=== PATIENT | female | born 1990 | race Caucasian/White ===

== ENCOUNTER 2018-02-10 07:11 | Outpatient (CLI) | payer MEDICAID | END 2018-02-10 11:00 | disposition home or self-care (01) | LOC: OBT 07:11 → L-D 07:11 → OBT 11:00 | DX: O62.9 Abnormality of forces of labor, unspecified (principal); Z3A.40 40 weeks gestation of pregnancy | CPT/HCPCS: 76818 ==

== ENCOUNTER 2018-02-13 02:45 | Inpatient (IN) | payer MEDICAID ==
[2018-02-13] MEDS ORDERED: OXYTOCIN 30 UNITS/LR 500 ML IV ×2 (04:00)
[2018-02-13] MEDS ORDERED: METHYLERGONOVINE 0.2 MG INJ IM (04:00)
[2018-02-13] MEDS ORDERED: LIDOCAINE 1% (MPF) 30 ML INJ INJ (04:00)
[2018-02-13] MEDS ORDERED: MISOPROSTOL 200 MCG TAB PR (04:00)
[2018-02-13] MEDS ORDERED: CARBOPROST 250 MCG INJ IM (04:00)
[2018-02-13] MEDS: LACTATED RINGER'S 1,000 ML IV ×6 (04:50→21:42)
[2018-02-13] MEDS: AMPICILLIN 2 GM/NS (PMX) 100 ML IV (05:38)
[2018-02-13 06:14] LABS: ADD MAN DIFF? NO
[2018-02-13 06:22] LABS: INR 0.99; PARTIAL THROMBOPLASTIN TIME 26.3 Sec (25.0-35.0); PROTIME 13.2 Sec (11.9-14.9)
[2018-02-13 06:25] LABS: HEMATOCRIT 29.3 % (37.0-47.0); HEMOGLOBIN 9.5 g/dl (12.0-16.0); RED BLOOD COUNT 3.32 10^6/ul (4.20-5.40)
[2018-02-13 06:25] LABS: WHITE BLOOD COUNT 7.7 10^3/ul (4.8-10.8)
[2018-02-13 06:26] LABS: BASOPHILS % 0.5 % (0.0-2.0); EOSINOPHILS # 0.2 10^3/ul (0.0-0.5); EOSINOPHILS % 3.1 % (0.0-7.0); LYMPHOCYTES # 2.1 10^3/ul (0.8-2.9); LYMPHOCYTES % 27.5 % (15.0-51.0); MEAN CORPUSCULAR HEMOGLOBIN 28.6 pg (29.0-33.0); MEAN CORPUSCULAR HGB CONC 32.4 g/dl (32.0-37.0); MEAN CORPUSCULAR VOLUME 88.3 fl (82.0-101.0); MEAN PLATELET VOLUME 11.5 fl (7.4-10.4); MONOCYTE # 0.7 10^3/ul (0.3-0.9); NEUTROPHIL # 4.5 10^3/ul (1.6-7.5); PLATELET COUNT 210 10^3/UL (140-415); RED CELL DISTRIBUTION WIDTH 13.6 % (11.5-14.5)
[2018-02-13] MEDS: MISOPROSTOL 25 MCG CAPSULE PO (06:41)
[2018-02-13] MEDS: BUTORPHANOL 2 MG INJ IV (07:35)
[2018-02-13] MEDS: AMPICILLIN 1 GM/NS (PMX) 50 ML IV ×4 (08:43→19:47)
[2018-02-13] MEDS ORDERED: FENTAnyl 2MCG/ML-ROPIV 0.2% 100 ML (10:41)
[2018-02-13] MEDS ORDERED: NALOXONE (0.4 MG/ML) INJ IV (11:30)
[2018-02-13] MEDS: OXYTOCIN 30 UNITS/LR 500 ML IV ×2 (11:31→23:54)
[2018-02-13 14:54] LABS: RAPID PLASMA REAGIN NONREACTIVE (NR)
[2018-02-13] MEDS: ACETAMINOPHEN 325 MG TAB PO (19:25)
[2018-02-13] MEDS: FENTAnyl 2MCG/ML-ROPIV 0.2% 100 ML BAG EPI (19:58)
[2018-02-14] MEDS: IBUPROFEN 600 MG TAB PO ×5 (00:30→23:45)
[2018-02-14] MEDS ORDERED: LACTATED RINGER'S 500 ML IV (01:15)
[2018-02-14] MEDS ORDERED: MISOPROSTOL 200 MCG TAB PR (01:30)
[2018-02-14] MEDS ORDERED: DIBUCAINE 1% 30 GM OINT PR (01:30)
[2018-02-14] MEDS ORDERED: DIPHENHYDRAMINE 50 MG INJ IV (01:30)
[2018-02-14] MEDS ORDERED: ONDANSETRON 4 MG INJ IV (01:30)
[2018-02-14] MEDS ORDERED: ZOLPIDEM 5 MG TAB PO (01:30)
[2018-02-14] MEDS ORDERED: CARBOPROST 250 MCG INJ IM (01:30)
[2018-02-14] MEDS ORDERED: OXYTOCIN 30 UNITS/LR 500 ML IV (01:30)
[2018-02-14] MEDS ORDERED: ACETAMINOPHEN 325 MG TAB PO (01:30)
[2018-02-14] MEDS ORDERED: OXYCODONE/ASPIRIN (4.88/325) TAB PO (01:30)
[2018-02-14] MEDS ORDERED: METHYLERGONOVINE 0.2 MG INJ IM (01:30)
[2018-02-14] MEDS: BENZOCAINE 20% 56 ML SPRAY TOP (06:19)
[2018-02-14] MEDS: WITCH HAZEL/GLYCERIN PAD PR (06:19)
[2018-02-14] MEDS: LANOLIN 7 GM TUBE TOP (06:19)
[2018-02-15] MEDS: IBUPROFEN 600 MG TAB PO ×3 (06:00→17:53)
[2018-02-15 07:11] LABS: ADD MAN DIFF? NO
[2018-02-15 07:19] LABS: WHITE BLOOD COUNT 14.9 10^3/ul (4.8-10.8)
[2018-02-15 07:19] LABS: BASOPHIL # 0.1 10^3/ul (0.0-0.1); BASOPHILS % 0.5 % (0.0-2.0); EOSINOPHILS # 0.4 10^3/ul (0.0-0.5); HEMATOCRIT 25.8 % (37.0-47.0); HEMOGLOBIN 8.5 g/dl (12.0-16.0); LYMPHOCYTES # 3.5 10^3/ul (0.8-2.9); LYMPHOCYTES % 23.4 % (15.0-51.0); MEAN CORPUSCULAR HEMOGLOBIN 29.2 pg (29.0-33.0); MEAN CORPUSCULAR HGB CONC 32.9 g/dl (32.0-37.0); MEAN CORPUSCULAR VOLUME 88.7 fl (82.0-101.0); MEAN PLATELET VOLUME 11.3 fl (7.4-10.4); MONOCYTES % 6.6 % (0.0-11.0); NEUTROPHIL # 9.8 10^3/ul (1.6-7.5); NEUTROPHILS % 65.7 % (39.0-77.0); PLATELET COUNT 179 10^3/UL (140-415); RED BLOOD COUNT 2.91 10^6/ul (4.20-5.40); RED CELL DISTRIBUTION WIDTH 14.2 % (11.5-14.5)
[2018-02-16] MEDS: IBUPROFEN 600 MG TAB PO ×2 (00:41→06:21)
[2018-02-16] MEDS: MEASLES,MUMPS,RUBELLA VACCINE INJ SC* (07:40)
[2018-02-16] MEDS: SENNA/DOCUSATE NA (8.6MG/50MG) TAB PO (10:33)
[2018-02-16] MEDS: DIPHTH/TET/ACEL PERTUSS (ADULT) 0.5 ML VIAL IM* (10:34)
== END 2018-02-16 12:30 | disposition home or self-care (01) | DRG 775 ==
LOC: OBT 02:45 → PP1 02-14 01:18 → L-D 02:46 → OBT 06:07 → L-D 03:39
PROVIDERS: Obstetrics & Gynecology
PROC: 10E0XZZ Delivery of Products of Conception, External Approach (ICD-10-PCS; principal; 2018-02-13)
PROC: 4A1HXCZ Monitoring of Products of Conception, Cardiac Rate, External Approach (ICD-10-PCS; 2018-02-13)
PROC: 3E0234Z Introduction of Serum, Toxoid and Vaccine into Muscle, Percutaneous Approach (ICD-10-PCS; 2018-02-16)
DX: O48.0 Post-term pregnancy (principal); Z3A.40 40 weeks gestation of pregnancy; Z37.0 Single live birth; Z23 Encounter for immunization
CPT/HCPCS: 36415; 62319; 76815; 85025; 85610; 85730; 86592; 86850; 86900; 86901; 88307; 90715; 99464

== ENCOUNTER 2018-09-24 08:54 | Emergency (ER) | payer SELFPAY, MEDICAID ==
[2018-09-24] MEDS: ACETAMINOPHEN 500 MG TAB PO (09:26)
[2018-09-24] MEDS: ONDANSETRON (ODT) 4 MG TAB ODT (09:27)
[2018-09-24 09:32] LABS: URINE BLOOD (Dip) POC 2+ (NEGATIVE); URINE GLUCOSE (Dip) POC Negative (NEGATIVE); URINE KETONES (Dip) POC Trace (NEGATIVE); URINE LEUKOCYTE EST (Dip) POC 1+ (NEGATIVE); URINE NITRITE (Dip) POC Positive (NEGATIVE); URINE TOTAL PROTEIN POC 2+ (NEGATIVE)
[2018-09-24 10:08] LABS: ADD MAN DIFF? NO
[2018-09-24 10:20] LABS: WHITE BLOOD COUNT 14.1 10^3/ul (4.8-10.8)
[2018-09-24 10:20] LABS: BASOPHILS % 0.3 % (0.0-2.0); EOSINOPHILS % 0.2 % (0.0-7.0); HEMATOCRIT 34.9 % (37.0-47.0); HEMOGLOBIN 11.7 g/dl (12.0-16.0); LYMPHOCYTES # 0.8 10^3/ul (0.8-2.9); LYMPHOCYTES % 5.7 % (15.0-51.0); MEAN CORPUSCULAR HEMOGLOBIN 29.2 pg (29.0-33.0); MEAN CORPUSCULAR HGB CONC 33.5 g/dl (32.0-37.0); MEAN PLATELET VOLUME 11.1 fl (7.4-10.4); MONOCYTE # 1.2 10^3/ul (0.3-0.9); MONOCYTES % 8.4 % (0.0-11.0); NEUTROPHIL # 11.9 10^3/ul (1.6-7.5); NEUTROPHILS % 84.8 % (39.0-77.0); PLATELET COUNT 237 10^3/UL (140-415); RED BLOOD COUNT 4.01 10^6/ul (4.20-5.40); RED CELL DISTRIBUTION WIDTH 13.8 % (11.5-14.5)
[2018-09-24] MEDS: CEFTRIAXONE 1 GM INJ IM (11:24)
[2018-09-24] MEDS: LIDOCAINE 1% (MPF) 5 ML VIAL INJ (11:24)
[2018-09-24 12:39] LABS: ADD UMIC YES; UR ASCORBIC ACID NEGATIVE (NEGATIVE); UR BACTERIA MODERATE /HPF (NONE SEEN); UR BILIRUBIN (Dip) NEGATIVE (NEGATIVE); UR BLOOD (Dip) 2+ mg/dL (NEGATIVE); UR CLARITY CLEAR (CLEAR); UR COLOR YELLOW (YELLOW); UR GLUCOSE (Dip) NEGATIVE (NEGATIVE); UR KETONES (Dip) TRACE mg/dL (NEGATIVE); UR LEUKOCYTE ESTERASE (Dip) 2+ Leu/ul (NEGATIVE); UR NITRITE (Dip) NEGATIVE (NEGATIVE); UR RBC 1 /HPF (0-5); UR SPECIFIC GRAVITY (Dip) 1.006 (1.003-1.030); UR SQUAMOUS EPITHELIAL CELL FEW /HPF (FEW); UR TOTAL PROTEIN (Dip) NEGATIVE (NEGATIVE); UR UROBILINOGEN (Dip) 1+ mg/dL (NEGATIVE); UR WBC 46 /HPF (0-5)
== END 2018-09-24 12:45 | disposition home or self-care (01) ==
LOC: FTE 08:54
DX: N39.0 Urinary tract infection, site not specified (principal); R10.2 Pelvic and perineal pain; Z33.1 Pregnant state, incidental
CPT/HCPCS: 36415; 76801; 81001; 81003; 81025; 84702; 85025; 86900; 86901; 87086; 87400; 96372; 99285-25

== ENCOUNTER 2019-03-27 09:25 | Inpatient (IN) | payer MEDICAID ==
[2019-03-27 10:26] LABS: ADD MAN DIFF? NO
[2019-03-27 10:28] LABS: WHITE BLOOD COUNT 9.3 10^3/ul (4.8-10.8)
[2019-03-27 10:28] LABS: BASOPHILS % 0.4 % (0.0-2.0); EOSINOPHILS # 0.2 10^3/ul (0.0-0.5); EOSINOPHILS % 2.4 % (0.0-7.0); HEMATOCRIT 27.6 % (37.0-47.0); HEMOGLOBIN 8.8 g/dl (12.0-16.0); LYMPHOCYTES # 1.6 10^3/ul (0.8-2.9); LYMPHOCYTES % 17.1 % (15.0-51.0); MEAN CORPUSCULAR HEMOGLOBIN 27.8 pg (29.0-33.0); MEAN CORPUSCULAR HGB CONC 31.9 g/dl (32.0-37.0); MEAN CORPUSCULAR VOLUME 87.1 fl (82.0-101.0); MEAN PLATELET VOLUME 10.4 fl (7.4-10.4); MONOCYTE # 0.7 10^3/ul (0.3-0.9); MONOCYTES % 7.4 % (0.0-11.0); NEUTROPHIL # 6.7 10^3/ul (1.6-7.5); PLATELET COUNT 189 10^3/UL (140-415); RED BLOOD COUNT 3.17 10^6/ul (4.20-5.40); RED CELL DISTRIBUTION WIDTH 14.6 % (11.5-14.5)
[2019-03-27 10:33] LABS: ADD UMIC YES; UR ASCORBIC ACID NEGATIVE (NEGATIVE); UR BACTERIA FEW /HPF (NONE SEEN); UR BILIRUBIN (Dip) NEGATIVE (NEGATIVE); UR BLOOD (Dip) 1+ mg/dL (NEGATIVE); UR CLARITY SLIGHTLY CLOUDY (CLEAR); UR COLOR YELLOW (YELLOW); UR GLUCOSE (Dip) NEGATIVE (NEGATIVE); UR KETONES (Dip) NEGATIVE (NEGATIVE); UR LEUKOCYTE ESTERASE (Dip) 3+ Leu/ul (NEGATIVE); UR NITRITE (Dip) NEGATIVE (NEGATIVE); UR RBC 4 /HPF (0-5); UR SPECIFIC GRAVITY (Dip) 1.006 (1.003-1.030); UR SQUAMOUS EPITHELIAL CELL FEW /HPF (FEW); UR TOTAL PROTEIN (Dip) NEGATIVE (NEGATIVE); UR UROBILINOGEN (Dip) NEGATIVE (NEGATIVE); UR WBC 8 /HPF (0-5)
[2019-03-27] MEDS: LACTATED RINGER'S 1,000 ML IV ×2 (11:44→19:30)
[2019-03-27] MEDS: CEFAZOLIN 2 GM/50 ML (PMX) 50 ML IVPB (13:23)
[2019-03-27] MEDS ORDERED: CEFAZOLIN 2 GM/50 ML (PMX) 50 ML IVPB (14:00)
[2019-03-27] MEDS ORDERED: DIPHENHYDRAMINE 50 MG INJ (14:13)
[2019-03-27] MEDS: DIPHENHYDRAMINE 50 MG INJ IV (14:20)
[2019-03-27] MEDS: CLINDAMYCIN 900 MG/D5W (PMX) 50 ML IVPB (23:31)
[2019-03-28] MEDS: LACTATED RINGER'S 1,000 ML IV ×3 (01:35→19:25)
[2019-03-28] MEDS: CLINDAMYCIN 900 MG/D5W (PMX) 50 ML IVPB ×3 (06:21→22:14)
[2019-03-28 07:04] LABS: IRON 119 ug/dl (35-150)
[2019-03-28 07:13] LABS: % IRON SATURATION 21 % SAT (22-52); TOTAL IRON BINDING CAPACITY 566 ug/dl (241-421)
[2019-03-28 07:52] LABS: FERRITIN 10.3 ng/ml (6.2-137.0)
[2019-03-28] MEDS: PRENATAL VITAMIN PO (10:27)
[2019-03-28] MEDS: FERROUS SULFATE (EC) 325 MG TAB PO (10:27)
[2019-03-29] MEDS: LACTATED RINGER'S 1,000 ML IV (03:25)
[2019-03-29] MEDS: CLINDAMYCIN 900 MG/D5W (PMX) 50 ML IVPB ×2 (05:45→14:12)
[2019-03-29] MEDS: FERROUS SULFATE (EC) 325 MG TAB PO (09:03)
[2019-03-29] MEDS: PRENATAL VITAMIN PO (09:03)
[2019-03-29 13:38] LABS: ADD UMIC YES; UR ASCORBIC ACID NEGATIVE (NEGATIVE); UR BACTERIA FEW /HPF (NONE SEEN); UR BILIRUBIN (Dip) NEGATIVE (NEGATIVE); UR BLOOD (Dip) 1+ mg/dL (NEGATIVE); UR CLARITY SLIGHTLY CLOUDY (CLEAR); UR COLOR YELLOW (YELLOW); UR GLUCOSE (Dip) NEGATIVE (NEGATIVE); UR KETONES (Dip) 1+ mg/dL (NEGATIVE); UR LEUKOCYTE ESTERASE (Dip) 3+ Leu/ul (NEGATIVE); UR MUCUS FEW /HPF (NONE SEEN); UR NITRITE (Dip) NEGATIVE (NEGATIVE); UR RBC 5 /HPF (0-5); UR SPECIFIC GRAVITY (Dip) 1.009 (1.003-1.030); UR SQUAMOUS EPITHELIAL CELL MANY /HPF (FEW); UR TOTAL PROTEIN (Dip) NEGATIVE (NEGATIVE); UR UROBILINOGEN (Dip) 1+ mg/dL (NEGATIVE); UR WBC 13 /HPF (0-5)
[2019-03-29] MEDS ORDERED: NITROFURANTOIN (SR) 100 MG CAP PO ×2 (15:00→17:00)
[2019-03-29] MEDS: NITROFURANTOIN (SR) 100 MG CAP PO (15:58)
== END 2019-03-29 20:00 | disposition home or self-care (01) | DRG 831 ==
LOC: OBT 09:25 → L-D 09:25 → OBT 11:20 → L-D 11:20 → PP1 11:56
DX: O23.03 Infections of kidney in pregnancy, third trimester (principal); O60.03 Preterm labor without delivery, third trimester; N13.6 Pyonephrosis; O99.89 Other specified diseases and conditions complicating pregnancy, childbirth and the puerperium; Z3A.36 36 weeks gestation of pregnancy
CPT/HCPCS: 76775; 76818; 81001; 82728; 83540; 85025; 87086

== ENCOUNTER 2019-04-16 23:09 | Inpatient (IN) | payer OTHER, MEDICAID ==
[~2019-04-16 23:09] MED LIST: CARBOPROST 250 MCG INJ; METHYLERGONOVINE 0.2 MG INJ
[2019-04-17] MEDS ORDERED: MINERAL OIL LIGHT 10 ML VIAL TOP
[2019-04-17] MEDS ORDERED: OXYTOCIN 30 UNITS/LR 500 ML IV ×3
[2019-04-17] MEDS ORDERED: LIDOCAINE 1% (MPF) 30 ML INJ INJ
[2019-04-17] MEDS ORDERED: MISOPROSTOL 200 MCG TAB PR
[2019-04-17] MEDS ORDERED: METHYLERGONOVINE 0.2 MG INJ IM
[2019-04-17] MEDS ORDERED: CARBOPROST 250 MCG INJ IM
[2019-04-17 00:06] LABS: ADD MAN DIFF? NO
[2019-04-17 00:08] LABS: WHITE BLOOD COUNT 8.9 10^3/ul (4.8-10.8)
[2019-04-17 00:08] LABS: BASOPHIL # 0.1 10^3/ul (0.0-0.1); BASOPHILS % 0.6 % (0.0-2.0); EOSINOPHILS # 0.3 10^3/ul (0.0-0.5); EOSINOPHILS % 3.6 % (0.0-7.0); HEMATOCRIT 26.8 % (37.0-47.0); HEMOGLOBIN 8.6 g/dl (12.0-16.0); LYMPHOCYTES # 2.4 10^3/ul (0.8-2.9); LYMPHOCYTES % 27.4 % (15.0-51.0); MEAN CORPUSCULAR HEMOGLOBIN 26.5 pg (29.0-33.0); MEAN CORPUSCULAR HGB CONC 32.1 g/dl (32.0-37.0); MEAN CORPUSCULAR VOLUME 82.5 fl (82.0-101.0); MEAN PLATELET VOLUME 10.4 fl (7.4-10.4); MONOCYTE # 0.7 10^3/ul (0.3-0.9); MONOCYTES % 7.8 % (0.0-11.0); NEUTROPHIL # 5.3 10^3/ul (1.6-7.5); NEUTROPHILS % 59.4 % (39.0-77.0); PLATELET COUNT 246 10^3/UL (140-415); RED BLOOD COUNT 3.25 10^6/ul (4.20-5.40); RED CELL DISTRIBUTION WIDTH 14.8 % (11.5-14.5)
[2019-04-17] MEDS: LACTATED RINGER'S 1,000 ML IV ×4 (00:09→22:31)
[2019-04-17 00:27] LABS: INR 0.99; PROTIME 13.2 Sec (11.9-14.9)
[2019-04-17 00:28] LABS: PARTIAL THROMBOPLASTIN TIME 22.8 Sec (23.0-35.0)
[2019-04-17] MEDS: MISOPROSTOL 50 MCG CAPSULE PO ×5 (01:15→17:45)
[2019-04-17] MEDS: MINERAL OIL LIGHT 10 ML VIAL TOP (17:00)
[2019-04-17] MEDS: BUTORPHANOL 2 MG INJ IV ×2 (20:02→23:13)
[2019-04-17 20:27] LABS: RAPID PLASMA REAGIN NONREACTIVE (NR)
[2019-04-17 23:45] LABS: HEPATITIS B SURFACE ANTIGEN NEGATIVE (NEGATIVE)
[2019-04-18] MEDS: LACTATED RINGER'S 1,000 ML IV ×5 (01:08→09:42)
[2019-04-18] MEDS ORDERED: FENTAnyl 2MCG/ML-ROPIV 0.2% 100 ML (02:17)
[2019-04-18] MEDS ORDERED: ONDANSETRON 4 MG INJ IV ×3 (03:00→18:30)
[2019-04-18] MEDS ORDERED: NALOXONE (0.4 MG/ML) INJ IV ×2 (03:00→18:30)
[2019-04-18] MEDS: FENTAnyl 2MCG/ML-ROPIV 0.2% 100 ML BAG EPI ×2 (09:36→14:40)
[2019-04-18] MEDS ORDERED: OXYTOCIN 30 UNITS/LR 500 ML IV ×4 (11:30→18:30)
[2019-04-18] MEDS: OXYTOCIN 30 UNITS/LR 500 ML IV (11:37)
[2019-04-18] MEDS ORDERED: SOD CHLORIDE 0.9% IVPB (16:30)
[2019-04-18] MEDS: CITRIC ACID/NA CITRATE 30 ML CUP PO (16:30)
[2019-04-18] MEDS ORDERED: GENTAMICIN IVPB (16:30)
[2019-04-18] MEDS ORDERED: CITRIC ACID/NA CITRATE 30 ML CUP (16:31)
[2019-04-18] MEDS: CLINDAMYCIN 900 MG/D5W (PMX) 50 ML IVPB (16:40)
[2019-04-18] MEDS ORDERED: METOCLOPRAMIDE 10 MG INJ (16:41)
[2019-04-18] MEDS ORDERED: morphine SULFATE/PF (10 MG/10 ML) INJ (16:41)
[2019-04-18] MEDS ORDERED: KETOROLAC 30 MG INJ (16:41)
[2019-04-18] MEDS ORDERED: LIDOCAINE 1.5%/EPI MPF (SDV) 30 ML VIAL (16:41)
[2019-04-18] MEDS ORDERED: GENTAMICIN 120 MG/NS (PMX) 100 ML IVPB (17:00)
[2019-04-18] MEDS ORDERED: OXYTOCIN 10 UNIT INJ ×2 (17:25→17:36)
[2019-04-18] MEDS ORDERED: FENTAnyl 50 MCG/ML VIAL (17:32)
[2019-04-18 17:48] LABS: AADO2 Cord Arterial 76.6 mmHg; Arterial Cord Blood pCO2 52.6 mmHG (25-50); CBA Base Excess -8.4 mmol/L; CBA COHb 0.3 %; CBA Total Hemglobin 13.5 g/dl; Cord Blood Arterial pO2 10.1 mmHG (15.0-45.0); Fraction OxyHgb Cord Arterial 11.8 %; MODE ROOM AIR; Sample Type CBV; Site CORD
[2019-04-18] MEDS ORDERED: morphine 2 MG INJ IV ×6 (18:30)
[2019-04-18] MEDS ORDERED: NA PHOSPHATE/BIPHOS 133 ML ENEMA PR (18:30)
[2019-04-18] MEDS ORDERED: KETOROLAC 30 MG INJ IV (18:30)
[2019-04-18] MEDS ORDERED: NACL 0.9% 3 ML SYG IV (18:30)
[2019-04-18] MEDS ORDERED: LANOLIN HPA 1 PKT TOP (18:30)
[2019-04-18] MEDS ORDERED: CARBOPROST 250 MCG INJ IM (18:30)
[2019-04-18] MEDS ORDERED: DIPHENHYDRAMINE 50 MG INJ IV ×2 (18:30)
[2019-04-18] MEDS ORDERED: METHYLERGONOVINE 0.2 MG INJ IM (18:30)
[2019-04-18] MEDS ORDERED: MISOPROSTOL 200 MCG TAB PR (18:30)
[2019-04-18 19:02] LABS: ADD MAN DIFF? NO
[2019-04-18 19:03] LABS: ABNORMAL IP MESSAGE 1; BASOPHILS % 0.2 % (0.0-2.0); HEMATOCRIT 24.9 % (37.0-47.0); HEMOGLOBIN 7.7 g/dl (12.0-16.0); LYMPHOCYTES # 0.3 10^3/ul (0.8-2.9); MEAN CORPUSCULAR HEMOGLOBIN 26.6 pg (29.0-33.0); MEAN CORPUSCULAR HGB CONC 30.9 g/dl (32.0-37.0); MEAN CORPUSCULAR VOLUME 85.9 fl (82.0-101.0); MEAN PLATELET VOLUME 10.4 fl (7.4-10.4); MONOCYTE # 0.3 10^3/ul (0.3-0.9); MONOCYTES % 1.5 % (0.0-11.0); NEUTROPHIL # 16.1 10^3/ul (1.6-7.5); NEUTROPHILS % 95.4 % (39.0-77.0); PLATELET COUNT 147 10^3/UL (140-415); RED CELL DISTRIBUTION WIDTH 15.1 % (11.5-14.5)
[2019-04-18 19:03] LABS: WHITE BLOOD COUNT 16.9 10^3/ul (4.8-10.8)
[2019-04-18 19:12] LABS: PLATELET COUNT 147 10^3/UL (140-415)
[2019-04-18 19:23] LABS: INR 1.16; PARTIAL THROMBOPLASTIN TIME 25.5 Sec (23.0-35.0); PROTIME 14.9 Sec (11.9-14.9); PT RATIO 1.2; THROMBIN TIME 15.7 SEC (13.8-19.1)
[2019-04-18] MEDS: KETOROLAC 30 MG INJ IV (22:49)
[2019-04-19] MEDS: LACTATED RINGER'S 1,000 ML IV ×2 (02:03→09:20)
[2019-04-19 08:34] LABS: ADD MAN DIFF? NO
[2019-04-19 08:42] LABS: ABNORMAL IP MESSAGE 1; BASOPHILS % 0.1 % (0.0-2.0); HEMATOCRIT 21.3 % (37.0-47.0); LYMPHOCYTES # 1.1 10^3/ul (0.8-2.9); LYMPHOCYTES % 5.3 % (15.0-51.0); MEAN CORPUSCULAR HEMOGLOBIN 26.8 pg (29.0-33.0); MEAN CORPUSCULAR HGB CONC 31.5 g/dl (32.0-37.0); MEAN CORPUSCULAR VOLUME 85.2 fl (82.0-101.0); MEAN PLATELET VOLUME 11.2 fl (7.4-10.4); MONOCYTE # 0.9 10^3/ul (0.3-0.9); MONOCYTES % 4.4 % (0.0-11.0); NEUTROPHIL # 18.6 10^3/ul (1.6-7.5); NEUTROPHILS % 89.1 % (39.0-77.0); PLATELET COUNT 140 10^3/UL (140-415); RED CELL DISTRIBUTION WIDTH 15.2 % (11.5-14.5)
[2019-04-19 08:42] LABS: WHITE BLOOD COUNT 20.9 10^3/ul (4.8-10.8)
[2019-04-19 08:50] LABS: POSITIVE DIFF @See below
[2019-04-19 08:51] LABS: HEMOGLOBIN 6.7 g/dl (12.0-16.0); PATH REVIEW? YES
[2019-04-19] MEDS: KETOROLAC 30 MG INJ IV ×2 (09:19→15:00)
[2019-04-19 09:40] LABS: ANISOCYTOSIS 2+ (0-0); BAND NEUTROPHILS % (M) 10 % (0-4); GIANT THROMBO% (M) 2 % (0-0); LYMPHOCYTES #M 0.8 10^3/ul (0.8-2.9); LYMPHOCYTES % (M) 4 % (15-51); MICROCYTOSIS 1+ (0-0); MONOCYTE #M 1.2 10^3/ul (0.3-0.9); MONOCYTES % (M) 6 % (0-11); PLATELET ESTIMATE NORMAL; POIKILOCYTOSIS 1+ (0-0); POLYCHROMASIA 3+ (0-0); SEG NEUT #M 17.1 10^3/ul (1.6-7.5); SEGMENTED NEUTROPHILS (M) % 80 % (39-77); SMUDGE%M 2 % (0-0)
[2019-04-19 09:58] LABS: IMMEDIATE SPIN CROSSMATCH 1 5
[2019-04-19] MEDS ORDERED: SOD CHLORIDE 0.9% 1,000 ML IV (10:00)
[2019-04-19 12:50] LABS: CBV Base Excess -7.7 mmol/L; CBV COHb 1.6 %; CBV Oxygen Sat 63.3 mmHG; CBV Total Hemglobin 14.2 g/dl; Cord Blood Venous pO2 27.8 mmHG (15.0-45.0); Fraction OxyHgb Cord Venous 61.1 %; MODE ROOM AIR; MetHgb Cord Venous 1.9 %; Sample Type CBA; Site CORD
[2019-04-19] MEDS ORDERED: MAGNESIUM HYDROXIDE 30ML CUP PO (18:30)
[2019-04-19] MEDS: DOCUSATE SODIUM 100 MG CAP PO (21:27)
[2019-04-19] MEDS: IBUPROFEN 800 MG TAB PO (21:27)
[2019-04-19] MEDS: HYDROCODONE/APAP (5/325) TAB PO (22:00)
[2019-04-20] MEDS: IBUPROFEN 800 MG TAB PO ×3 (05:29→21:52)
[2019-04-20] MEDS: HYDROCODONE/APAP (5/325) TAB PO ×3 (06:00→21:52)
[2019-04-20 08:35] LABS: ADD MAN DIFF? NO
[2019-04-20 08:39] LABS: BASOPHILS % 0.1 % (0.0-2.0); EOSINOPHILS % 0.2 % (0.0-7.0); LYMPHOCYTES # 1.9 10^3/ul (0.8-2.9); LYMPHOCYTES % 10.9 % (15.0-51.0); MEAN CORPUSCULAR HEMOGLOBIN 27.2 pg (29.0-33.0); MEAN CORPUSCULAR HGB CONC 31.8 g/dl (32.0-37.0); MEAN CORPUSCULAR VOLUME 85.6 fl (82.0-101.0); MEAN PLATELET VOLUME 11.5 fl (7.4-10.4); MONOCYTE # 1.2 10^3/ul (0.3-0.9); NEUTROPHIL # 13.7 10^3/ul (1.6-7.5); NEUTROPHILS % 80.9 % (39.0-77.0); PLATELET COUNT 118 10^3/UL (140-415); RED BLOOD COUNT 2.57 10^6/ul (4.20-5.40); RED CELL DISTRIBUTION WIDTH 15.5 % (11.5-14.5)
[2019-04-20 08:39] LABS: WHITE BLOOD COUNT 16.9 10^3/ul (4.8-10.8)
[2019-04-20] MEDS: DOCUSATE SODIUM 100 MG CAP PO ×2 (09:23→21:52)
[2019-04-20 13:02] LABS: IRON 28 ug/dl (35-150)
[2019-04-20 13:12] LABS: % IRON SATURATION 6 % SAT (22-52); TOTAL IRON BINDING CAPACITY 450 ug/dl (241-421)
[2019-04-20 13:39] LABS: FERRITIN 32.1 ng/ml (6.2-137.0)
[2019-04-20] MEDS: CYANOCOBALAMIN 1000 MCG INJ SC (14:05)
[2019-04-20] MEDS: FERROUS SULFATE (EC) 325 MG TAB PO ×2 (14:09→21:52)
[2019-04-21] MEDS: HYDROCODONE/APAP (5/325) TAB PO ×2 (06:14→13:49)
[2019-04-21] MEDS: IBUPROFEN 800 MG TAB PO ×2 (06:15→13:49)
[2019-04-21] MEDS: DIPHTH/TET/ACEL PERTUSS (ADULT) 0.5 ML VIAL IM* (09:00)
[2019-04-21] MEDS: DOCUSATE SODIUM 100 MG CAP PO (09:27)
[2019-04-21] MEDS: FERROUS SULFATE (EC) 325 MG TAB PO ×2 (09:27→13:48)
== END 2019-04-21 15:45 | disposition home or self-care (01) | DRG 788 ==
LOC: L-D 23:09 → PP1 04-18 21:21
PROVIDERS: Obstetrics & Gynecology
PROC: 10D00Z1 Extraction of Products of Conception, Low, Open Approach (ICD-10-PCS; principal; 2019-04-18)
PROC: 3E033VJ Introduction of Other Hormone into Peripheral Vein, Percutaneous Approach (ICD-10-PCS; 2019-04-18)
DX: O36.63X0 Maternal care for excessive fetal growth, third trimester, not applicable or unspecified (principal); Z3A.39 39 weeks gestation of pregnancy; Z37.0 Single live birth
CPT/HCPCS: 36415; 36430; 36600; 62322; 76815; 82728; 82803; 83540; 85025; 85049; 85610; 85670; 85730; 86592; 86850; 86900; 86901; 86920; 87340; 99464

== ENCOUNTER 2019-06-02 08:41 | Emergency (ER) | payer OTHER ==
[2019-06-02] MEDS: SOD CHLORIDE 0.9% 1,000 ML IV (09:14)
[2019-06-02] MEDS: LORAZEPAM 2 MG INJ IV (09:14)
[2019-06-02 09:32] LABS: ADD MAN DIFF? NO
[2019-06-02 09:35] LABS: BASOPHIL # 0.1 10^3/ul (0.0-0.1); BASOPHILS % 0.9 % (0.0-2.0); EOSINOPHILS # 0.2 10^3/ul (0.0-0.5); EOSINOPHILS % 3.1 % (0.0-7.0); HEMATOCRIT 35.5 % (37.0-47.0); HEMOGLOBIN 11.2 g/dl (12.0-16.0); LYMPHOCYTES # 1.5 10^3/ul (0.8-2.9); LYMPHOCYTES % 22.8 % (15.0-51.0); MEAN CORPUSCULAR HEMOGLOBIN 26.8 pg (29.0-33.0); MEAN CORPUSCULAR HGB CONC 31.5 g/dl (32.0-37.0); MEAN CORPUSCULAR VOLUME 84.9 fl (82.0-101.0); MEAN PLATELET VOLUME 11.9 fl (7.4-10.4); MONOCYTE # 0.6 10^3/ul (0.3-0.9); MONOCYTES % 9.3 % (0.0-11.0); NEUTROPHIL # 4.3 10^3/ul (1.6-7.5); NEUTROPHILS % 63.5 % (39.0-77.0); PLATELET COUNT 280 10^3/UL (140-415); RED BLOOD COUNT 4.18 10^6/ul (4.20-5.40); RED CELL DISTRIBUTION WIDTH 16.4 % (11.5-14.5)
[2019-06-02 09:35] LABS: WHITE BLOOD COUNT 6.8 10^3/ul (4.8-10.8)
[2019-06-02 09:59] LABS: ALANINE AMINOTRANSFERASE 43 IU/L (13-69); ALBUMIN 4.8 g/dl (3.3-4.9); ALBUMIN/GLOBULIN RATIO 1.29; ALKALINE PHOSPHATASE 103 IU/L (42-121); ANION GAP 12 (5-13); ASPARTATE AMINO TRANSFERASE 36 IU/L (15-46); BILIRUBIN,INDIRECT 0.8 mg/dl (0-1.1); BILIRUBIN,TOTAL 0.8 mg/dl (0.2-1.3); BLOOD UREA NITROGEN 17 mg/dl (7-20); CALCIUM 9.9 mg/dl (8.4-10.2); CARBON DIOXIDE 21 mmol/L (21-31); CHLORIDE 106 mmol/L (97-110); CREATININE 0.96 mg/dl (0.44-1.00); Estimated GFR > 60 mL/min (>60); GLUCOSE 84 mg/dl (70-220); LIPASE 20 U/L (23-300); POTASSIUM 3.6 mmol/L (3.5-5.1); SODIUM 139 mmol/L (135-144); TOTAL PROTEIN 8.5 g/dl (6.1-8.1)
[2019-06-02 11:32] LABS: ADD UMIC YES; UR ASCORBIC ACID NEGATIVE (NEGATIVE); UR BACTERIA FEW /HPF (NONE SEEN); UR BILIRUBIN (Dip) NEGATIVE (NEGATIVE); UR BLOOD (Dip) 1+ mg/dL (NEGATIVE); UR CLARITY CLOUDY (CLEAR); UR COLOR AMBER (YELLOW); UR GLUCOSE (Dip) NEGATIVE (NEGATIVE); UR KETONES (Dip) 1+ mg/dL (NEGATIVE); UR LEUKOCYTE ESTERASE (Dip) 1+ Leu/ul (NEGATIVE); UR MUCUS FEW /HPF (NONE SEEN); UR NITRITE (Dip) POSITIVE (NEGATIVE); UR RBC 1 /HPF (0-5); UR SPECIFIC GRAVITY (Dip) 1.025 (1.003-1.030); UR SQUAMOUS EPITHELIAL CELL MODERATE /HPF (FEW); UR TOTAL PROTEIN (Dip) 2+ mg/dl (NEGATIVE); UR UROBILINOGEN (Dip) NEGATIVE (NEGATIVE); UR WBC 11 /HPF (0-5)
== END 2019-06-02 12:03 | disposition home or self-care (01) ==
LOC: E/R 08:41
DX: O99.345 Other mental disorders complicating the puerperium (principal); O86.22 Infection of bladder following delivery; B96.89 Other specified bacterial agents as the cause of diseases classified elsewhere; F41.9 Anxiety disorder, unspecified; O90.6 Postpartum mood disturbance
CPT/HCPCS: 36415; 80053; 81001; 81025; 83690; 85025; 93005; 96361; 96374; 99284-25